=== PATIENT | male | born 1975 | race Native Hawaiian/Other Pacific Islander ===

== ENCOUNTER 2019-07-03 10:08 | Outpatient (CLI) | payer BC ==
[~2019-07-03 10:08] MED LIST: ADLT ASA LOW81 MG PO; ATEN25TA21 PO
== END 2019-07-03 22:53 | disposition home or self-care (01) ==
LOC: RAD 10:08
DX: J20.8 Acute bronchitis due to other specified organisms (principal)

== ENCOUNTER 2020-06-01 10:54 | Emergency (ER) | payer OTHER ==
[~2020-06-01] VITALS: Ht 188 cm; Wt 122.5 kg
[2020-06-01 11:49] LABS: PLATELET COUNT 189 K/uL (142-355)
[2020-06-01 13:04] VITALS: BP 136/74; TEMP 99
== END 2020-06-01 13:13 | disposition home or self-care (01) ==
LOC: ED 10:54
PROVIDERS: Hospitalist
DX: J06.9 Acute upper respiratory infection, unspecified (principal); Z20.828 Contact with and (suspected) exposure to other viral communicable diseases; R50.9 Fever, unspecified; F17.210 Nicotine dependence, cigarettes, uncomplicated
CPT/HCPCS: 36415; 80053; 81000; 85027; 87502; 87635; 87651; 96365; 96375; 99284; J0696; J1100; J2405; U0003

== ENCOUNTER 2021-01-15 10:43 | Outpatient (CLI) | payer OTHER | END 2021-01-15 22:11 | disposition home or self-care (01) | LOC: CT 10:43 | PROVIDERS: ATTEND Family Medicine | DX: M54.5 Low back pain (principal) ==

== ENCOUNTER 2021-02-05 09:14 | Outpatient (CLI) | payer OTHER | END 2021-02-05 22:15 | disposition home or self-care (01) | LOC: MRI 09:14 | PROVIDERS: ATTEND Nurse Practitioner Family | DX: M47.896 Other spondylosis, lumbar region (principal) ==

== ENCOUNTER 2021-03-29 15:07 | Emergency (ER) | payer OTHER ==
[~2021-03-29] VITALS: Ht 188 cm; Wt 99.8 kg
[2021-03-29 15:10] VITALS: BP 128/80; TEMP 98
== END 2021-03-29 15:50 | disposition home or self-care (01) ==
LOC: ED 15:07
DX: G43.909 Migraine, unspecified, not intractable, without status migrainosus (principal); Z98.890 Other specified postprocedural states
CPT/HCPCS: 96372; 99283; J1200; J1885

== ENCOUNTER 2021-03-31 09:02 | Outpatient (CLI) | payer OTHER ==
[~2021-03-31] VITALS: Ht 182.9 cm; Wt 110.2 kg
[2021-03-31 09:30] LABS: PLATELET COUNT 188 K/uL (142-355)
== END 2021-03-31 10:30 | disposition home or self-care (01) ==
LOC: INF 09:02
PROVIDERS: ATTEND Family Medicine
DX: M25.512 Pain in left shoulder (principal)
CPT/HCPCS: 80053; 85027